=== PATIENT | male | born 1950 | race Caucasian/White ===

== ENCOUNTER → 2017-11-23 08:00 | Outpatient (CLI) | payer MEDICARE, SELFPAY ==
[2017-11-23 09:00] LABS: AST(SGOT) 15 U/L (15-37); Alanine Aminotransfer ALT/SGPT 19 U/L (16-61); Albumin, Serum 3.6 g/dL (3.2-5.0); Alkaline Phosphatase 95 U/L (45-117); Anion Gap 9 (5-15); BUN 33 mg/dL (7-18); BUN/Creat Ratio 19.9 RATIO (10-20); Bilirubin, Direct 0.29 mg/dL (0.00-0.30); Calcium,Total 8.9 mg/dL (8.5-10.1); Chloride 112 mmol/L (98-107); Cholesterol 120 mg/dL (200); Creatinine, Serum 1.66 mg/dL (0.70-1.30); EST Glomerular Filtration Rate 44 mL/min (>60); Est Glom Filt Rate - Afr Amer 53 mL/min (>60); Globulin 3.2 g/dL (2.2-4.2); Glucose 85 mg/dL (70-110); High Density Lipoprotein 52 mg/dL; Phosphorus 2.6 mg/dL (2.5-4.9); Potassium 4.9 mmol/L (3.5-5.1); Protein, Total 6.8 g/dL (6.4-8.2); Sodium Level 144 mmol/L (136-145); Triglycerides 56 mg/dL; Very Low Density Lipoprotein 11 mg/dL (5-40)
== END ==
PROVIDERS: Physician Assistant Medical; Family Provider Internal Medicine; PCP Internal Medicine; Visit Provider Internal Medicine Nephrology
DX: N18.3 Chronic kidney disease, stage 3 (moderate) (principal); E78.5 Hyperlipidemia, unspecified; Z79.899 Other long term (current) drug therapy
CPT/HCPCS: 36415; 80048; 80061; 80076; 84100

== ENCOUNTER → 2018-05-25 08:01 | Outpatient (CLI) | payer MEDICARE, SELFPAY ==
[2018-05-25 09:47] LABS: AST(SGOT) 15 U/L (15-37); Alanine Aminotransfer ALT/SGPT 19 U/L (16-61); Albumin, Serum 3.6 g/dL (3.2-5.0); Alkaline Phosphatase 79 U/L (45-117); Bilirubin, Direct 0.35 mg/dL (0.00-0.30); Cholesterol 124 mg/dL (200); Globulin 3.2 g/dL (2.2-4.2); High Density Lipoprotein 55 mg/dL; Protein, Total 6.8 g/dL (6.4-8.2); Triglycerides 54 mg/dL; Very Low Density Lipoprotein 11 mg/dL (5-40)
== END ==
PROVIDERS: Family Provider Internal Medicine; PCP Internal Medicine; Visit Provider Physician Assistant Medical
DX: E78.5 Hyperlipidemia, unspecified (principal); Z79.899 Other long term (current) drug therapy
CPT/HCPCS: 36415; 80061; 80076

== ENCOUNTER → 2018-07-06 07:07 | Outpatient (CLI) | payer MEDICARE, SELFPAY ==
--- NOTE | 2018-07-06 07:08 | CT_ITS ---
STUDY: CT ABDOMEN AND PELVIS WITHOUT CONTRAST REASON FOR EXAM: Male, 68 years old. Epigastric pain, prior AAA repair RADIATION DOSAGE (If Supplied By Facility): CTDIvol = ( 9.51 ) mGy, DLP = ( 484.89 ) mGycm TECHNIQUE: Transaxial images were obtained from the dome of the diaphragm to the symphysis pubis with oral contrast, and without intravenous contrast. Sagittal and coronal images were reconstructed. Individualized dose optimization techniques were used for this CT. COMPARISON: None. FINDINGS: The study is limited, being performed without intravenous contrast. The visualized lung bases are unremarkable. The visualized portions of the heart are within normal limits. There are several hepatic cysts measuring up to 1.5 cm. There is a minimal amount of calcific sludge or gravel in the gallbladder. Normal spleen. There is a low-attenuation focus in the pancreatic head measuring 2.4 cm measuring cystic density. Normal bilateral adrenal glands. There are multiple right renal cysts measuring up to 4.1 cm. The left kidney is absent. Normal visualized stomach. Normal small intestine. There is scattered colonic diverticulosis with no evidence of associated diverticulitis. The appendix is visualized and appears normal. There is aneurysmal dilatation of the distal abdominal aorta measuring up to 4.4 cm. An aortoiliac graft is present. There is no evidence of aneurysmal leakage. Normal inferior vena cava. Normal retroperitoneum. Normal urinary bladder. The prostate is enlarged, measuring 6.5 x 4.6 cm. The seminal vesicles and seminal vesicle angles are normal. There is a small umbilical hernia containing fat. There is a grade 2 anterolisthesis of L5 relative to S1 with bilateral L5 spondylolysis. CT/Abdomen/Pel W ORAL Cont Only IMPRESSION: 1. Aneurysmal dilatation of the distal abdominal aorta measuring up to 4.4 cm. An aortoiliac graft is present. There is no evidence of aneurysmal leakage. 2. There is a low-attenuation cystic density focus of the pancreatic head measuring 2.4 cm. Comparison with previous studies is recommended. If no previous studies are available for comparison, MRI and/or CT of the abdomen and pelvis with oral and intravenous contrast may be helpful for further evaluation. 3. Multiple right renal cysts measuring up to 4.1 cm. 4. The left kidney is absent. 5. Enlarged prostate. 6. There is no evidence of free intra-abdominal or intrapelvic air, fluid, or inflammatory process. Electronically Signed: Hernan Gutierrez MD at 17:09 EDT , Service support ,
--- NOTE | 2018-07-06 07:18 | EKG12_ITS ---
Test Reason : Blood Pressure : / mmHG Vent. Rate : 064 BPM Atrial Rate : 064 BPM P-R Int : 216 ms QRS Dur : 092 ms QT Int : 374 ms P-R-T Axes : 051 042 061 degrees QTc Int : 385 ms Sinus rhythm with 1st degree A-V block Septal infarct , age undetermined Abnormal ECG When compared with ECG of 12-JAN-2017 11:08, No significant change was found Confirmed by PATO GAMBOA, MARY GRACE ([id number]), film or videotape editor TALAT MOREAU ([id number]) on 07/09/2018 3:53:54 PM Referred By: Ej Adame Confirmed By:MARY GRACE WHYTE MD
[2018-07-06 08:07] LABS: Absolute Lymphocyte Count 1.49 X10^3/ul (0.83-4.51); Absolute Neutrophil Count 3.2 X10^3/uL (2.0-7.7); Basophil# 0.06 X10^3/uL; Basophil% 1.1 % (0-1); Eosinophil# 0.08 X10^3/uL; Eosinophils% 1.4 % (0-5); Hematocrit 41.2 % (40-54); Hemoglobin 13.1 g/dl (13.0-16.5); Lymphocyte # 1.49 X10^3/ul (4.0); Lymphocyte % 26.7 % (19-41); Mean Corp Hgb Conc 31.8 g/gl (32-36); Mean Corpuscular Volume 94.3 fL (80-94); Mean Platelet Vol. 9.5 fl (6.2-12.0); Monocyte# 0.73 X10^3/uL; Monocyte% 13.1 % (0-10); Neutrophil # 3.22 X10^3/uL (2.7-7.7); Neutrophil % 57.5 % (47-70); Platelet Count 223 K/mm3 (150-450); RBC Distribution Width CV 13.9 % (11.6-14.6); RBC Distribution Width SD 47.9 fl (35.1-43.9); Red Blood Count 4.37 M/mm3 (4.6-6.2); White Blood Count 5.6 K/mm3 (4.4-11.0)
[2018-07-06 08:10] LABS: POSITIVE COUNT NO; POSITIVE DIFFERENTIAL NO; POSITIVE MORPHOLOGY NO
[2018-07-06 08:34] LABS: ALB/GLOB Ratio 1.1 RATIO (0.9-2.4); AST(SGOT) 20 U/L (15-37); Alanine Aminotransfer ALT/SGPT 26 U/L (16-61); Albumin, Serum 3.6 g/dL (3.2-5.0); Alkaline Phosphatase 79 U/L (45-117); Anion Gap 8 (5-15); BUN 34 mg/dL (7-18); BUN/Creat Ratio 18.7 RATIO (10-20); Calcium,Total 8.9 mg/dL (8.5-10.1); Chloride 114 mmol/L (98-107); Creatinine, Serum 1.82 mg/dL (0.70-1.30); EST Glomerular Filtration Rate 39 mL/min (>60); Est Glom Filt Rate - Afr Amer 48 mL/min (>60); Globulin 3.3 g/dL (2.2-4.2); Glucose 86 mg/dL (74-106); Lipase 224 U/L (73-393); Potassium 4.7 mmol/L (3.5-5.1); Protein, Total 6.9 g/dL (6.4-8.2); Sodium Level 142 mmol/L (136-145)
== END ==
PROVIDERS: Family Provider Internal Medicine; PCP Internal Medicine; Visit Provider Surgery
DX: I10 Essential (primary) hypertension (principal); R10.13 Epigastric pain
CPT/HCPCS: 36415; 74176; 80053; 83690; 85025; 93005

== ENCOUNTER 2018-08-17 07:18 | Day surgery (SDC) | payer MEDICARE, SELFPAY ==
[2018-08-17] VITALS (10 sets, daily range): BP systolic 82–131; BP diastolic 44–89; PULSE 55–77; RESP 16; TEMP 35.7–36.9; O2SAT 95–100; BMI 21.1
--- NOTE | 2018-08-17 | COLBX_PTH ---
PATIENT: JACOB ISRAEL III LOC: EN U#:[id number] AGE/SX: 68/M ROOM: RE08/17/[address]: Dr. Ej Adame MD : 1950 BED: DIS: 08/17/2018 SPEC #: [id number] RECD: 08/17/18 13:10 STATUS: EDWARD RON #: [id number] KALYANI: 08/17/18 00:[address]: Ej Adame DEPT: SURGICAL PATHOLOGY RECD BY: Galo Reynolds ENTERED: 08/17/18 13:11 SP TYPE: COLON BX OTHR DR: Dr. Prasad Posey MD Tissues: COLON BIOPSY Procedures: Surgery Specimen Level IV HEADER OPERATION: Colonoscopy (MOD) PRE-OP DIAGNOSIS: Abdominal pain, diarrhea TISSUE SUBMITTED: Random colon biopsy MICROSCOPIC DIAGNOSIS Colon, random biopsy: Fragments of colonic mucosa, no pathologic diagnosis. RIDGE:josh 08/20/18 MICROSCOPIC DESCRIPTION Slides are reviewed. GROSS DESCRIPTION Received in fixative is one container labeled with the patient's name and designated random colonic biopsy. The specimen consists of multiple irregular fragments of light garcia soft tissue that in aggregate measure 1.5 x 1 x 0.1 cm. The specimen is totally submitted in one cassette. / SJ:rg 08/17/18 TC:4 CPT: 15393
--- NOTE | 2018-08-17 08:47 | PCM.HP.STD ---
Problem List (1) Diarrhea Status: Acute Qualifiers: (2) Epigastric abdominal pain Status: Acute History of Present Illness Date of Admission: 08/17/18 The patient is a 68 year old M who presented to the office with concerns of epigastric pain and diarrhea. He has had a previous uncomplicated infrarenal abdominal aortic stent graft repair. He has not had a colonoscopy for at least 16 years. He does have atherosclerotic cardiovascular disease. He presents now to proceed with a screening colonoscopy. No acute laboratory findings were identified. He did not note any bright red blood per rectum or melena during his diarrhea. He denies any family history of colon cancer or colon polyps. 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) Abdominal aortic aneurysm (Chronic) HLD (hyperlipidemia) (Chronic) Atherosclerotic heart disease of [place] coronary artery without angina pectoris (Chronic) Medical History: Medical History (Last Reviewed 07/03/18 @ 13:03 by Mckenna Mcgill) Diarrhea (Acute) R19.7 Epigastric abdominal pain (Acute) R10.13 Hypertension (Chronic) I10 Other detention (current) drug therapy (Chronic) Z79.899 Old myocardial infarction (Chronic) I25.2 Silent [place] with totally occluded LAD with collateralization 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) I82.491 Abdominal aortic aneurysm (Chronic) I71.4 S/P vasectomy (Resolved) Z98.52 HLD (hyperlipidemia) (Chronic) E78.5 Atherosclerotic heart disease of [place] coronary artery without angina pectoris (Chronic) I25.10 Allergies erythromycin base [Erythromycin Base] Adverse Reaction (Verified 03/09/18 08:54) Diarrhea hydrochlorothiazide Adverse Reaction (Verified 03/09/18 08:54) Diarrhea Penicillins Adverse Reaction (Verified 03/09/18 08:54) Diarrhea prednisone Adverse Reaction (Verified 03/09/18 08:54) Diarrhea Home Medications: Ambulatory Orders Medication Instructions Recorded Aspirin [Aspirin, Baby] 81 mg PO DAILY@0800 01/18/14 Ramipril [Altace] 10 mg PO DAILY 01/18/14 Sildenafil Citrate [Viagra] 50 mg PO DAILY PRN 01/18/14 Ofloxacin [Floxin] 400 mg PO PRN PRN 06/04/14 Atorvastatin Calcium [Lipitor] 40 mg PO QHS 11/05/14 peg 3350-electrolytes 236 4,000 ml PO ONCE #4000 ml 07/19/18 gram-22.74 gram-6.74 gram-5.86 gram solution Surgical History: Surgical History (Last Reviewed 07/03/18 @ 13:03 by Mckenna Mcgill) History of liver biopsy (Resolved) Z98.890 H/O arthroscopic knee surgery (Resolved) Z98.890 H/O colonoscopy (Resolved) Z98.890 Hx of hernia repair Z98.890, Z87.19 Surgical History: no surgical history Psychiatric History: No pertinent psych hx Smoking Status: Former smoker Review of Systems Constitutional: Denies: Anorexia HEENT: Denies: Difficulty Hearing Cardiovascular: Denies: Chest Pain Respiratory: Denies: Cough Gastrointestinal: Reports: Abdominal Pain, Diarrhea VTE Information - Inpt Only VTE Present on Admission: No - Physical Exam General: Alert, Oriented x3, Cooperative, No apparent distress Oral: Moist Mucosa Neck: Supple Lungs: Clear to auscultation Cardiovascular: Regular rate Abdomen: Bowel Sounds Present, Soft, Non Tender Extremities: No Calf Tenderness Skin: No rashes Neurological: Cranial nerves II-XII grossly intact Psych/Mental Status: Normal Affect Vital Signs Temp Pulse Resp BP Pulse Ox 98.4 F 77 16 114/78 100 08/17/18 07:45 08/17/18 07:45 08/17/18 07:45 08/17/18 07:45 08/17/18 07:45 Oxygen Delivery Method Room Air Weight: 178 lb Body Mass Index (BMI) 21.1 Assessment/Plan All Active Problems (Last Reviewed 07/03/18 @ 13:03 by Mckenna Mcgill) Diarrhea (Acute) Epigastric abdominal pain (Acute) History of liver biopsy (Resolved) H/O arthroscopic knee surgery (Resolved) S/P vasectomy (Resolved) H/O colonoscopy (Resolved) Plan to proceed with a screening colonoscopy. The patient is aware of the technique, benefits, risks, alternatives. He has had an opportunity to ask and have questions answered. His epigastric pain is become more generalized abdominal pain. Previous colonoscopy 16 years ago. Ej Adame M.D., F.A.C.S.
--- NOTE | 2018-08-17 08:52 | HP.PCM_ITS ---
Problem List (1) Diarrhea Status: Acute Qualifiers: (2) Epigastric abdominal pain Status: Acute History of Present Illness Date of Admission: 08/17/18 The patient is a 68 year old M who presented to the office with concerns of epigastric pain and diarrhea. He has had a previous uncomplicated infrarenal abdominal aortic stent graft repair. He has not had a colonoscopy for at least 16 years. He does have atherosclerotic cardiovascular disease. He presents now to proceed with a screening colonoscopy. No acute laboratory findings were identified. He did not note any bright red blood per rectum or melena during his diarrhea. He denies any family history of colon cancer or colon polyps. 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491 Abdominal aortic aneurysm (Chronic) I71.4 S/P vasectomy (Resolved) Z98.52 HLD (hyperlipidemia) (Chronic) E78.5 Atherosclerotic heart disease of [place] coronary artery without angina pectoris (Chronic) I25.10 Allergies erythromycin base [Erythromycin Base] Adverse Reaction (Verified 03/09/18 08:54) Diarrhea hydrochlorothiazide Adverse Reaction (Verified 03/09/18 08:54) Diarrhea Penicillins Adverse Reaction (Verified 03/09/18 08:54) Diarrhea prednisone Adverse Reaction (Verified 03/09/18 08:54) Diarrhea Home Medications: Ambulatory Orders Medication Instructions Recorded Aspirin [Aspirin, Baby] 81 mg PO DAILY@0800 01/18/14 Ramipril [Altace] 10 mg PO DAILY 01/18/14 Sildenafil Citrate [Viagra] 50 mg PO DAILY PRN 01/18/14 Ofloxacin [Floxin] 400 mg PO PRN PRN 06/04/14 Atorvastatin Calcium [Lipitor] 40 mg PO QHS 11/05/14 peg 3350-electrolytes 236 4,000 ml PO ONCE #4000 ml 07/19/18 gram-22.74 gram-6.74 gram-5.86 gram solution Surgical History: Surgical History (Last Reviewed 07/03/18 @ 13:03 by Mckenna Mcgill) History of liver biopsy (Resolved) Z98.890 H/O arthroscopic knee surgery (Resolved) Z98.890 H/O colonoscopy (Resolved) Z98.890 Hx of hernia repair Z98.890, Z87.19 Surgical History: no surgical history Psychiatric History: No pertinent psych hx Smoking Status: Former smoker Review of Systems Constitutional: Denies: Anorexia HEENT: Denies: Difficulty Hearing Cardiovascular: Denies: Chest Pain Respiratory: Denies: Cough Gastrointestinal: Reports: Abdominal Pain, Diarrhea VTE Information - Inpt Only VTE Present on Admission: No - Physical Exam General: Alert, Oriented x3, Cooperative, No apparent distress Oral: Moist Mucosa Neck: Supple Lungs: Clear to auscultation Cardiovascular: Regular rate Abdomen: Bowel Sounds Present, Soft, Non Tender Extremities: No Calf Tenderness Skin: No rashes Neurological: Cranial nerves II-XII grossly intact Psych/Mental Status: Normal Affect Vital Signs Temp Pulse Resp BP Pulse Ox 98.4 F 77 16 114/78 100 08/17/18 07:45 08/17/18 07:45 08/17/18 07:45 08/17/18 07:45 08/17/18 07:45 Oxygen Delivery Method Room Air Weight: 178 lb Body Mass Index (BMI) 21.1 Assessment/Plan All Active Problems (Last Reviewed 07/03/18 @ 13:03 by Mckenna Mcgill) Diarrhea (Acute) Epigastric abdominal pain (Acute) History of liver biopsy (Resolved) H/O arthroscopic knee surgery (Resolved) S/P vasectomy (Resolved) H/O colonoscopy (Resolved) Plan to proceed with a screening colonoscopy. The patient is aware of the technique, benefits, risks, alternatives. He has had an opportunity to ask and have questions answered. His epigastric pain is become more generalized abdominal pain. Previous colonoscopy 16 years ago. Ej Adame M.D., F.A.C.S.
--- NOTE | 2018-08-17 09:20 | OP.ENDO_ITS ---
Patient Name: Erik Fox Procedure Date: 08/17/2018 8:46 AM Date of : 1950 Age: 68 Procedure: Colonoscopy Indications: Screening for colorectal malignant neoplasm Providers: Ej Adame MD Referring MD: Ej Adame MD Medicines: Midazolam 3.5 mg IV, Meperidine 100 mg IV Patient Profile: Last Colonoscopy: more than 10 years ago. Complications: No immediate complications. Procedure: Pre-Anesthesia Assessment: - Prior to the procedure, a History and Physical was performed, and patient medications and allergies were reviewed. The patient's tolerance of previous anesthesia was also reviewed. The risks and benefits of the procedure and the sedation options and risks were discussed with the patient. All questions were answered, and informed consent was obtained. Prior Anticoagulants: The patient has taken aspirin, last dose was day of procedure. ASA Grade Assessment: II - A patient with mild systemic disease. After reviewing the risks and benefits, the patient was deemed in satisfactory condition to undergo the procedure. After I obtained informed consent, the scope was passed under direct vision. Throughout the procedure, the patient's blood pressure, pulse, and oxygen saturations were monitored continuously. The colonoscope was introduced through the anus and advanced to the cecum, identified by appendiceal orifice and ileocecal valve. The colonoscopy was performed without difficulty. The patient tolerated the procedure well. The quality of the bowel preparation was good. The ileocecal valve was photographed. Moderate Sedation: Moderate (conscious) sedation was personally administered by the endoscopist. The following parameters were monitored: oxygen saturation, heart rate, blood pressure, and response to care. Total physician intraservice time was 15 minutes. Scope In: 8:57:56 AM Scope Withdrawal Time 0 hours 8 minutes 12 seconds Scope Out: 9:15:21 AM Total Procedure Duration Time 0 hours 17 minutes 25 seconds Findings: The digital rectal exam findings include internal hemorrhoids that prolapse with straining, but require manual replacement into the anal canal (Grade III). Pertinent negatives include normal prostate (size, shape, and consistency). Multiple diverticula were found in the sigmoid colon and descending colon. Biopsies for histology were taken with a cold forceps from the entire colon for evaluation of microscopic colitis. The exam was otherwise without abnormality. Impression: - Internal hemorrhoids that prolapse with straining, but require manual replacement into the anal canal (Grade III) found on digital rectal exam. - Diverticulosis in the sigmoid colon and in the descending colon. Biopsied. - The examination was otherwise normal. Recommendation: - Discharge patient to home. - Resume previous diet. - Continue present medications. - Repeat colonoscopy in 10 years for screening purposes. - Telephone my office for pathology results in 1 week. Procedure Code(s): --- Professional --- 50630, Colonoscopy, flexible; with biopsy, single or multiple 43897, 59, Moderate sedation services provided by the same physician or other qualified health intensive care medicine specialist performing the diagnostic or therapeutic service that the sedation supports, requiring the presence of an independent trained observer to assist in the monitoring of the patient's level of consciousness and physiological status; initial 15 minutes of intraservice time, patient age 5 years or older Diagnosis Code(s): --- Professional --- Z12.11, Encounter for screening for malignant neoplasm of colon K64.2, Third degree hemorrhoids K57.30, Diverticulosis of large intestine without perforation or abscess without bleeding CPT copyright 2017 [employer]. All rights reserved. The codes documented in this report are preliminary and upon icd 9 coder review may be revised to meet current compliance requirements. Ej Adame MD 08/17/2018 9:20:13 AM This report has been signed electronically. Number of Addenda: 0 Note Initiated On: 08/17/2018 8:46 AM
== END 2018-08-17 10:13 | disposition home or self-care (01) ==
LOC: EN 07:18 → AC 07:20
PROVIDERS: Family Provider Internal Medicine; PCP Internal Medicine; Referring Provider Surgery; Visit Provider Surgery
PROC: 0DJD8ZZ Inspection of Lower Intestinal Tract, Via Natural or Artificial Opening Endoscopic (ICD-10-PCS; CPT 45378; principal; 2018-08-17 08:25)
DX: Z12.11 Encounter for screening for malignant neoplasm of colon (principal); K57.30 Diverticulosis of large intestine without perforation or abscess without bleeding; K64.2 Third degree hemorrhoids; R19.7 Diarrhea, unspecified; R10.13 Epigastric pain; I25.10 Atherosclerotic heart disease of native coronary artery without angina pectoris; I12.9 Hypertensive chronic kidney disease with stage 1 through stage 4 chronic kidney disease, or unspecified chronic kidney disease; N18.3 Chronic kidney disease, stage 3 (moderate); I71.4 Abdominal aortic aneurysm, without rupture; E78.5 Hyperlipidemia, unspecified; Q60.0 Renal agenesis, unilateral; I25.2 Old myocardial infarction; Z79.82 Long term (current) use of aspirin; Z79.899 Other long term (current) drug therapy; Z87.891 Personal history of nicotine dependence; Z86.718 Personal history of other venous thrombosis and embolism
CPT/HCPCS: 45380; 88305; 99152; 99153; J7120

== ENCOUNTER → 2018-08-21 08:03 | Outpatient (CLI) | payer MEDICARE, SELFPAY ==
[2018-08-21 09:09] LABS: Albumin, Serum 3.6 g/dL (3.2-5.0); BUN 30 mg/dL (7-18); BUN/Creat Ratio 19.9 RATIO (10-20); Calcium,Total 8.9 mg/dL (8.5-10.1); Chloride 110 mmol/L (98-107); Creatinine, Serum 1.51 mg/dL (0.70-1.30); EST Glomerular Filtration Rate 49 mL/min (>60); Est Glom Filt Rate - Afr Amer 59 mL/min (>60); Glucose 84 mg/dL (74-106); Phosphorus 2.4 mg/dL (2.5-4.9); Potassium 4.6 mmol/L (3.5-5.1); Sodium Level 142 mmol/L (136-145)
== END ==
PROVIDERS: Family Provider Internal Medicine; PCP Internal Medicine; Referring Provider Internal Medicine Nephrology; Visit Provider Internal Medicine Nephrology
DX: N18.3 Chronic kidney disease, stage 3 (moderate) (principal)
CPT/HCPCS: 36415; 80069

== ENCOUNTER → 2019-03-11 08:02 | Outpatient (CLI) | payer MEDICARE, SELFPAY ==
[2018-10-04 14:44] VITALS: BMI 20.8
[2019-03-11 10:32] LABS: Albumin, Serum 3.4 g/dL (3.2-5.0); BUN 30 mg/dL (7-18); Chloride 115 mmol/L (98-107); Creatinine, Serum 1.67 mg/dL (0.70-1.30); EST Glomerular Filtration Rate 43 mL/min (>60); Est Glom Filt Rate - Afr Amer 52 mL/min (>60); Glucose 83 mg/dL (74-106); Phosphorus 2.3 mg/dL (2.5-4.9); Potassium 4.5 mmol/L (3.5-5.1); Sodium Level 144 mmol/L (136-145)
[2019-03-11 10:55] LABS: PTHIN 107.6 pg/mL (18.4-80.1)
== END ==
PROVIDERS: Family Provider Internal Medicine; PCP Internal Medicine; Referring Provider Internal Medicine Nephrology; Visit Provider Internal Medicine Nephrology
DX: N17.9 Acute kidney failure, unspecified (principal); N18.3 Chronic kidney disease, stage 3 (moderate)
CPT/HCPCS: 36415; 80069; 83970

== ENCOUNTER 2019-06-09 21:04 | Emergency (ER) | payer MEDICARE, SELFPAY ==
[2018-10-04 14:44] VITALS: BMI 20.8
[2019-06-09 21:05] VITALS: BP 99/71; PULSE 86; RESP 15; TEMP 36.4; BMI 22.1
--- NOTE | 2019-06-09 22:05 | ED.RN ---
Addendum entered by Angie Scott 06/09/19 22:20: PT HEADED TO CT SCAN WITH DR. SERRANO Original Note: AT THIS TIME PT COLLAPSED AT BEDSIDE, 2 IV'S STARTED. IVF PROVIDED, DR. SERRANO AND DR. FREIRE AT BEDSIDE
--- NOTE | 2019-06-09 22:10 | RAD_ITS ---
STUDY: X-RAY CHEST REASON FOR EXAM: Male, 69 years old. STEMI TECHNIQUE: Single AP portable view of the chest. COMPARISON: Prior study of 01/05/2017 FINDINGS: panel monitor leads are present. There is increased density of the perihilar regions right side more severely affected than left. There is no demonstrated pleural abnormality. Normal size heart. Normal mediastinum and lavelle. There is prominence of the pulmonary hilar arteries and peripheral pulmonary arteries, consistent with congestive heart failure (CHF). Normal visualized aortic arch and descending thoracic aorta. Normal visualized thoracic spine. Normal visualized ribs, clavicles, and shoulders. There is no demonstrated abnormality of the visualized soft tissue structures of the upper abdomen. RAD/Chest 1 View (Portable) IMPRESSION: CHF. Bilateral perihilar densities right side more severely affected than left consistent with pulmonary edema. These abdomen allergies represent new interval findings from the previous study. Electronically Signed: Hernan Gutierrez MD at 22:33 EDT , Service support ,
[2019-06-09 22:11] LABS: Bedside Glucose 193 mg/dL (70-110)
--- NOTE | 2019-06-09 22:11 | CT_ITS ---
STUDY: CT ABDOMEN AND PELVIS WITHOUT CONTRAST REASON FOR EXAM: Male, 69 years old. Back and neck pain RADIATION DOSAGE (If Supplied By Facility): CTDIvol = ( 7.14 ) mGy, DLP = ( 469.25 ) mGycm TECHNIQUE: Transaxial images were obtained from the dome of the diaphragm to the symphysis pubis without oral contrast, and without intravenous contrast. Sagittal and coronal images were reconstructed. Individualized dose optimization techniques were used for this CT. COMPARISON: Prior study of 07/06/2018 FINDINGS: The study is limited, being performed without intravenous contrast. CHF is present. There are right upper and right lower lobe infiltrates and/or atelectasis. Coronary arterial calcifications are present. The heart size is within normal limits. There is no pericardial effusion. Normal liver. There is a 1.4 cm cyst of the medial inferior right hepatic lobe. There is a tiny amount of calcific gravel in the gallbladder. Normal spleen. Normal pancreas. Normal bilateral adrenal glands. There are multiple right renal cysts measuring up to 4.1 cm. The left kidney is absent. There is a small hiatal hernia. Normal small intestine. There is scattered colonic diverticuli with no evidence of associated diverticulitis. The appendix is visualized and appears normal. There is aneurysmal dilatation of the mid to distal abdominal aorta measuring up to 3.8 cm. An aortoiliac graft is present. There is no evidence of aneurysmal leakage. The IVC is generous in caliber. Normal retroperitoneum. The nonopacified urinary bladder appears within normal limits. The prostate is enlarged. The seminal vesicles and seminal vesicle angles appear normal. Normal abdominal wall. There is a grade 2 anterolisthesis of L5 relative to S1 with bilateral L5 spondylolysis. CT/Abdomen/Pelvis without Cont IMPRESSION: 1. CHF is present. There are right upper and right lower lobe infiltrates and/or atelectasis. 2. Aneurysmal dilatation of the mid to distal abdominal aorta measuring up to 3.8 cm in diameter. This is decreased in caliber, previously measuring up to 4.4 cm. An aortoiliac graft is present. There is no evidence of aneurysmal leakage. 3. Tiny amount calcific gravel in the gallbladder. 4. Multiple right renal cysts measuring up to 4.1 cm. The left kidney is absent. 5. Colonic diverticulosis with no evidence of associated diverticulitis. 6. Grade 2 anterolisthesis of L5 relative to S1 with bilateral L5 spondylolysis. 7. There is no evidence of free intra-abdominal or intrapelvic air, fluid, or inflammatory process. Electronically Signed: Hernan Gutierrez MD at 23:04 EDT , Service support ,
[2019-06-09 22:12] VITALS: BP 75/60; PULSE 79; RESP 37; O2SAT 89
--- NOTE | 2019-06-09 22:14 | ED.VIS.GEN ---
History of Present Illness Chief Complaint: Other, Pain/Inj Detail of Chief Complaint: back and neck pain, vomiting Informant: Patient, Significant Other Onset: Days - 3 Context: Gradual Onset - after lifting and working in yard Timing: Continuous Location: upper and lower back, anterior neck Associated Symptoms: n/v all day today. c/o periumbilical abd pain. Narrative: Patient had been triaged to the emergency department and not yet seen by physician, he was vomiting on the side of the bed and then passed out, Dr. Ladd and myself both entered the room and began evaluating the patient in addition to nursing. Patient and state that he has been complaining of back and neck discomfort for 3 days and vomiting all day today. states he had not complained of any chest discomfort. When asking the patient now, he states his chest is having pain as well and radiating into his anterior neck, and he has been having that since as well. Unknown if constant or intermittent. However when asked again short period of time later, he denies having chest pain at this time. He is awake and appears short of breath. History is relatively limited due to the patient's condition. states he was told he had a heart attack in the past but never required any stents or cardiac surgery. He sees Dr. Bang. On no anticoagulants. Had an infrarenal AAA repair in the past. They both deny any bright red blood or melena recently. 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 (3) Atherosclerotic heart disease of [place] coronary artery without angina pectoris Status: Chronic (4) HLD (hyperlipidemia) Status: Chronic (5) Hypertension Status: Chronic (6) Old myocardial infarction Status: Chronic Comment: [place] with totally occluded LAD with collateralization Past Medical History - Allergies and Home Meds Allergies/Adverse Reactions: Allergies erythromycin base [Erythromycin Base] Adverse Reaction (Verified 06/09/19 21:10) Diarrhea hydrochlorothiazide Adverse Reaction (Verified 06/09/19 21:10) Diarrhea Penicillins Adverse Reaction (Verified 06/09/19 21:10) Diarrhea prednisone Adverse Reaction (Verified 06/09/19 21:10) Diarrhea Doctors: Dr. Bang cardiology Surgical History: herniorrhaphy, - - knee Lives: Spouse/ Significant Other Smoking Status: Former smoker Drugs: None Review of Systems ROS: Unable to Obtain - limited; see HPI and below General: Reports: Malaise. Denies: Fever Cardiovascular: Reports: Chest pain Respiratory: Reports: Dyspnea Gastrointestinal: Reports: Abdominal pain, Nausea, Vomiting. Denies: Diarrhea, Melena, Hematochezia Musculoskeletal: Reports: Neck pain, Back pain. Denies: Swelling, Extremity Pain Neurological: Denies: Headache Physical Exam Vital Signs/Narrative: Vital Signs Temp Pulse Resp BP 06/09/19 21:05 97.5 F L 86 15 99/71 Inital Vital Signs reviewed: Yes General: Well nourished, Well developed, Acute Distress Head: Normocephalic, Atraumatic Eyes: Perrl, EOMI ENT: Moist mucous membranes, No rhinorrhea Neck: Supple, Nontender Cardiovascular: Regular rate, Regular rhythm, No murmurs, - - 1+ bilat DP and radial pulses Respiratory: Chest nontender, Rales - bibasilar, - - mild resp distress Abdomen: Soft, Nontender, Nondistended, Normal bowel sounds. Negative for: Pulsatile mass Back: Nontender, Normal Inspection Extremities: Nontender, No edema. Negative for: Calf Tenderness Skin: No rash, Diaphoresis, No Trauma, Pallor - diffusely Neurological: Alert, Cranial nerves II-XII grossly intact, Normal Strength, Normal Sensation, - - limited speech due to acuity/condition Diagnostic/Tx/Re-eval Impressions Chest X-Ray 06/09/19 22:10 IMPRESSION: CHF. Bilateral perihilar densities right side more severely affected than left consistent with pulmonary edema. These abdomen allergies represent new interval findings from the previous study. Electronically Signed: Hernan Gutierrez MD at 22:33 EDT , Service support , 06/09/19 22:10 Chest 1 View (Portable) [RAD] Stat 06/09/19 22:11 Abdomen/Pelvis without Cont [CT] Stat Laboratory Results 06/09/19 06/09/19 22:02 22:15 POC Glucose 193 H Crossmatch See Detail Laboratory Tests 06/09/19 06/09/19 06/09/19 Range/Units 22:15 22:02 22:00 WBC (4.4-11.0) K/mm3 RBC (4.6-6.2) M/mm3 Hgb (13.0-16.5) g/dL Hct (40-54) % MCV (80-94) fL MCH (27.0-32.0) pg MCHC (32-36) g/dL RDW Std Deviation (35.1-43.9) fl RDW Coeff of Marty (11.6-14.6) % Plt Count (150-450) K/mm3 MPV (6.2-12.0) fl Immature Gran % (Auto) (0.0-0.9) % Neut % (Auto) (47-70) % Lymph % (Auto) (19-41) % [place] % (Auto) (0-10) % Eos % (Auto) (0-5) % Baso % (Auto) (0-1) % Absolute Neuts (auto) (2.0-7.7) X10^3/uL Absolute Lymphs (auto) (0.83-4.51) X10^3/uL Nucleated RBC % (0-5) % Sodium 143 (136-145) mmol/L Potassium 5.1 (3.5-5.1) mmol/L Chloride 114 H (98-107) mmol/L Carbon Dioxide 18.0 L (21.0-32.0) mmol/L Anion Gap 11 (5-15) BUN 35 H (7-18) mg/dL Creatinine 2.32 H (0.70-1.30) mg/dL Estim Creat Clear Calc 35.04 ml/min Est GFR (MDRD) Af Amer 36 L (>60) mL/min Est GFR (MDRD) Non-Af 30 L (>60) mL/min BUN/Creatinine Ratio 15.1 (10-20) RATIO Glucose 186 H (74-106) mg/dL Calcium 9.4 (8.5-10.1) mg/dL Troponin I 22.400 H* (<0.045) ng/mL POC Glucose 193 H (70-110) mg/dL Crossmatch See Detail 06/09/19 Range/Units 22:00 WBC 12.8 H (4.4-11.0) K/mm3 RBC 4.39 L (4.6-6.2) M/mm3 Hgb 13.8 (13.0-16.5) g/dL Hct 41.6 (40-54) % MCV 94.8 H (80-94) fL MCH 31.4 (27.0-32.0) pg MCHC 33.2 (32-36) g/dL RDW Std Deviation 46.2 H (35.1-43.9) fl RDW Coeff of Marty 13.2 (11.6-14.6) % Plt Count 173 (150-450) K/mm3 MPV 9.9 (6.2-12.0) fl Immature Gran % (Auto) 0.600 (0.0-0.9) % Neut % (Auto) 77.0 H (47-70) % Lymph % (Auto) 16.3 L (19-41) % [place] % (Auto) 5.9 (0-10) % Eos % (Auto) 0.0 (0-5) % Baso % (Auto) 0.2 (0-1) % Absolute Neuts (auto) 9.9 H (2.0-7.7) X10^3/uL Absolute Lymphs (auto) 2.09 (0.83-4.51) X10^3/uL Nucleated RBC % 0 (0-5) % Sodium (136-145) mmol/L Potassium (3.5-5.1) mmol/L Chloride (98-107) mmol/L Carbon Dioxide (21.0-32.0) mmol/L Anion Gap (5-15) BUN (7-18) mg/dL Creatinine (0.70-1.30) mg/dL Estim Creat Clear Calc ml/min Est GFR (MDRD) Af Amer (>60) mL/min Est GFR (MDRD) Non-Af (>60) mL/min BUN/Creatinine Ratio (10-20) RATIO Glucose (74-106) mg/dL Calcium (8.5-10.1) mg/dL Troponin I (<0.045) ng/mL POC Glucose (70-110) mg/dL Crossmatch - Rhythm Strip Rhythm Strip: Sinus Rhythm Rate: 65 Ectopy: None - EKG Initial EKG Interpretation: S-T Elevation - laterally, S-T Depression - inferiorly, - - junctional rhythm w/ wide QRS Prior: Changed - narrow QRS w/o BBB Follow-up EKG Interpretation: Junctional, S-T Elevation - septal-lat, S-T Depression - inf, - - wide QRS Prior: Unchanged - c/w initial - Medical Decision Making We immediately started bolusing fluids and placed him on a nonrebreather, the EKG appears to show a STEMI. Unknown if this is a result of the symptoms that brought him here or the initial problem, but the concern is that he was having stuttering angina all weekend and is having a STEMI now. We had him do some baby aspirin and sat him up a little. Discussed with cardiology who came to the ED short while later. He agreed with performing a quick noncontrast CT abdomen/pelvis first, we did this and it at this time appears to show no hemorrhage/AAA rupture or other acute abnormality. Official interpretation is pending. Cardiology at the bedside. Repeated EKG which still looks like a lateral/septal infarct. 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 Dr. Schultz requesting Brilinta and heparin which are being given. Chest x-ray shows pulmonary edema, we have him on a nonrebreather which is keeping his saturations above 90%. Labs just returned, see above. Troponin elevation consistent with above hx. - Critical Care Time Critical care time (excluding procedures): 30-74 minutes - 35 min, Including time spent:, Discussing w/Patient &/or Family/Forensic Specialist, Discussing w/Consultants, Arranging Admission or Transfer, Performing Direct Patient Care at Bedside ED Disposition - Plan for ED Patient: Disposition: Acute Care [facility] Diagnosis: STEMI (ST elevation myocardial infarction), Cardiogenic shock
[2019-06-09] MEDS: Aspirin 81 MG TAB.CHEW 324 MG PO (22:16)
[2019-06-09] MEDS: Ondansetron 4 MG/2 ML Vial IV (22:16)
[2019-06-09 22:18] VITALS: O2SAT 89
[2019-06-09] MEDS: 0.9% Normal Saline 1,000 ML 999 ML IV (22:20)
[2019-06-09 22:24] LABS: Absolute Lymphocyte Count 2.09 X10^3/uL (0.83-4.51); Absolute Neutrophil Count 9.9 X10^3/uL (2.0-7.7); Basophil# 0.02 X10^3/uL; Basophil% 0.2 % (0-1); Hematocrit 41.6 % (40-54); Hemoglobin 13.8 g/dL (13.0-16.5); Lymphocyte # 2.09 X10^3/ul (4.0); Lymphocyte % 16.3 % (19-41); Mean Corp Hgb Conc 33.2 g/dL (32-36); Mean Corpuscular Hgb 31.4 pg (27.0-32.0); Mean Corpuscular Volume 94.8 fL (80-94); Mean Platelet Vol. 9.9 fl (6.2-12.0); Monocyte# 0.75 X10^3/uL; Monocyte% 5.9 % (0-10); NRBC Flagged by Analyzer 0 % (0-5); Neutrophil # 9.86 X10^3/uL (2.7-7.7); POSITIVE MORPHOLOGY YES; Platelet Count 173 K/mm3 (150-450); RBC Distribution Width CV 13.2 % (11.6-14.6); RBC Distribution Width SD 46.2 fl (35.1-43.9); Red Blood Count 4.39 M/mm3 (4.6-6.2); White Blood Count 12.8 K/mm3 (4.4-11.0)
[2019-06-09 22:25] VITALS: BP 54/41; PULSE 61; RESP 34
--- NOTE | 2019-06-09 22:32 | ED.RN ---
Addendum entered by Angie Scott 06/09/19 22:33: PT IV WENT BAD. 2ND IV STARTED. DR. SERRANO AT BEDSIDE. Original Note: PT RETURNED FROM CT. VITALS OBTAINED 115/78. HR 85. AT BEDSIDE. DR. SERRANO HOLDS OFF ON TRAUMA BLOOD.
[2019-06-09] MEDS: TICAGRELOR 90 MG TABLET 180 MG PO (22:39)
[2019-06-09] MEDS: Heparin Injection (Vial) 5,000 UNIT/ML VIAL 4000 UNIT IV (22:39)
[2019-06-09 22:40] LABS: Anion Gap 11 (5-15); BUN 35 mg/dL (7-18); BUN/Creat Ratio 15.1 RATIO (10-20); Calcium,Total 9.4 mg/dL (8.5-10.1); Chloride 114 mmol/L (98-107); Creatinine, Serum 2.32 mg/dL (0.70-1.30); EST Glomerular Filtration Rate 30 mL/min (>60); Est Glom Filt Rate - Afr Amer 36 mL/min (>60); Estimated Creatinine Clearance 35.04 ml/min; Glucose 186 mg/dL (74-106); Potassium 5.1 mmol/L (3.5-5.1); Sodium Level 143 mmol/L (136-145)
--- NOTE | 2019-06-09 22:40 | ED.RN ---
180 MG BRILINTA PO GIVEN AT [id number] 4000 UNITS IV HEPARIN PROVIDED BY
[2019-06-09 22:41] VITALS: PULSE 87
[2019-06-09 22:41] LABS: Differential Indicated SCAN CRITERIA MET
[2019-06-09 22:43] LABS: International Normalized Ratio 1.1; Prothrombin Time (Protime)PT. 14.3 SECONDS (11.7-14.9)
[2019-06-09 22:44] LABS: Partial Thromboplast Time 32.8 Seconds (24.1-36.2)
[2019-06-09 23:04] LABS: Differential Comment SCANNED
[2019-06-09 23:09] LABS: Lipase 128 U/L (73-393)
[2019-06-09 23:11] LABS: AST(SGOT) 108 U/L (15-37); Alanine Aminotransfer ALT/SGPT 23 U/L (16-61); Albumin, Serum 3.5 g/dL (3.2-5.0); Alkaline Phosphatase 91 U/L (45-117); Globulin 3.4 g/dL (2.2-4.2); Protein, Total 6.9 g/dL (6.4-8.2)
[2019-06-09 23:35] LABS: Lactic Acid 5.4 mmol/L (0.4-2.0)
--- NOTE | 2019-06-09 23:38 | ED.RN ---
PT RECEIVED APPROX 4750ML IV FLUIDS
[2019-06-10 03:12] LABS: Reflex Lactate? Y
== END 2019-06-09 23:04 ==
PROVIDERS: Emergency Medicine; Emergency Provider Emergency Medicine; Family Provider Internal Medicine; PCP Internal Medicine; Referring Provider Emergency Medicine
DX: I21.29 ST elevation (STEMI) myocardial infarction involving other sites (principal); R57.0 Cardiogenic shock; I25.10 Atherosclerotic heart disease of native coronary artery without angina pectoris; I10 Essential (primary) hypertension; E78.5 Hyperlipidemia, unspecified; I25.2 Old myocardial infarction; Z87.891 Personal history of nicotine dependence
CPT/HCPCS: 31500; 71045; 74176; 80048; 80076; 82962; 83605; 83690; 84484; 85025; 85610; 85730; 86850; 86900; 86901; 92950; 93005; 96374; 96375; 99282; J7030; A4216; J0330; J2405